=== PATIENT | female | born 1985 ===

== ENCOUNTER 2022-05-02 07:16 | Day surgery (SDC) | payer OTHER, SELFPAY ==
[2022-05-02] MEDS ORDERED: CEFAZOLIN SODIUM 1 GM/VIAL ONE (07:54)
[2022-05-02] MEDS ORDERED: Ringers Lactate 1,000 ML IV ONE (07:54)
[2022-05-02] MEDS ORDERED: CELECOXIB 100 MG CAPSULE ONE (08:28)
[2022-05-02] MEDS ORDERED: ACETAMINOPHEN 500 MG TAB ONE (08:28)
[2022-05-02] MEDS ORDERED: LIDOCAINE 2% MPF 5 ML VIAL ONE (08:36)
[2022-05-02] MEDS ORDERED: ROCURONIUM 50 MG/5 ML VIAL IV ONE (08:36)
[2022-05-02] MEDS ORDERED: ONDANSETRON 4 MG/2 ML VIAL ONE (08:36)
[2022-05-02] MEDS ORDERED: MIDAZOLAM HCL 2 MG/2 ML INJ ONE (08:36)
[2022-05-02] MEDS ORDERED: dexAMETHasone 10 MG/ML VIAL ONE (08:36)
[2022-05-02] MEDS ORDERED: FENTANYL CITR 100 MCG/2 ML ONE (08:36)
[2022-05-02] MEDS ORDERED: propofoL 200 MG/20 ML VIAL IV ONE (08:36)
[2022-05-02] MEDS ORDERED: BUPIVACAINE 0.5% PF 10 ML VIAL ONE (08:49)
[2022-05-02] MEDS ORDERED: LIDOCAINE 1% W/EPI 1:100,000 10 ML VIAL ONE (08:49)
[2022-05-02] MEDS ORDERED: KETOROLAC 30 MG/ML INJ ONE (09:57)
[2022-05-02] MEDS ORDERED: Mastisol Adhesive Liq ONE (10:09)
[2022-05-02 11:45] VITALS: BP 136/84; TEMP 97.4; O2SAT 99
[2022-05-02 14:06] LABS: Urine Specific Gravity/Preg >1.030 (1.005-1.030)
--- NOTE | 2022-05-02 16:05 | OP ---
Date of Procedure: 05/02/2022 Surgeon: SARA WARNER Primary Care Physician: Unknown. Preoperative Diagnosis: Left level 1 deep cervical neck mass. Postoperative Diagnosis: Left level 1 deep cervical neck mass. Procedure: Excision of left level 1 deep neck mass under general anesthesia. Anesthesia: General endotracheal anesthesia was administered. I also infiltrated approximately 10 m L of 1% lidocaine with 1:100,000 epinephrine at the incision site. Estimated Blood Loss: Scant, less than 2 mL. Specimens: Obtained from the left level 1 neck just superficial to the left submandibular gland and submitted to pathology for evaluation. Findings: Well-circumscribed deep left level 1 neck mass measuring approximately 3 cm in diameter. It was loosely attached to the superficial edge of the left submandibular gland. Complications: None. Disposition: Stable. The patient tolerated the procedure well. Indications For Procedure: The patient is a pleasant 36-year-old female, who presented to my outpati ent clinic with gradually enlarging deep cervical neck mass involving level 1 neck located on the lef t side just superficial to the left submandibular gland. It appeared cystic in nature. CT scan demo nstrated a well-circumscribed neck mass that looked cystic, although it could be solid soft tissue ma ss as well. These were indications to bring the patient to the operative suite for the above-mention ed procedure. She understood, all questions were answered. Risks versus benefits, complications exp lained in detail and a consent form was signed, which was placed on the chart. Description Of Procedure: The patient was transferred from the preoperative holding area to the oper ative suite by Department of Anesthesia, placed on the operating table supine, and sedated and intuba vandana in normal fashion. I infiltrated approximately 10 mL of 1% lidocaine with 1:100,000 epinephrine at the incision site and the patient was sterilely prepped and draped. A small incision was made approximately 2 cm below the mandibular border with a #15 blade scalpel thr ough the skin and subcutaneous tissue. I then switched to LigaSure to perform the rest surgery. I d issected past the platysma down to the submandibular triangle and located the cystic mass just superf icial to the tail of the submandibular gland. I did have to divide the facial vein to get through th e lesion and once down to the level of the cystic lesion, I was able to dissect it out with the LigaS ure. It was removed and somewhat decompressed by pressure from a Srinivas. The wound cavity was irri gated with saline, and Valsalva was performed and there was no evidence of sharon bleeding. Hemostasi s was achieved with needlepoint electrocautery. I then reapproximated the platysma and subcutaneous tissue with 3-0 Vicryl in a simple interrupted fashion. I then left a small lateral gap down to the deep tissue level and inserted a small Gateway drain. I then reapproximated the epidermis and dermis in a subcuticular fashion with 4-0 Monocryl in a continuous running fashion. I then secured the erwin in to the neck with 4-0 Monocryl. A compressive dressing was placed and she tolerated the procedure well. She will be discharged home on analgesic, topical and oral antibiotics, will follow up in 3 da ys or sooner if needed. ILSA/THOMAS Voice ID: [id number] Report ID: [id number]
== END 2022-05-02 11:50 | disposition home or self-care (01) ==
LOC: OR 07:16
PROVIDERS: ATTEND Otolaryngology Facial Plastic Surgery
PROC: 0JB50ZZ Excision of Left Neck Subcutaneous Tissue and Fascia, Open Approach (ICD-10-PCS; principal; 2022-05-02 08:45)
DX: D23.4 Other benign neoplasm of skin of scalp and neck (principal)
CPT/HCPCS: 81025; 88305; 88307; J0690; J1100; J2001; J2250; J2405; J2704; J3010; J7120